=== PATIENT | female | born 1985 | race Caucasian/White ===

== ENCOUNTER 2019-05-01 06:04 | Day surgery (SDC) | payer OTHER ==
[~2019-05-01] VITALS: Ht 162.6 cm; Wt 57.6 kg
[2019-05-01] MEDS ORDERED: PROPOFOL 200 MG/20 ML VIAL IV ONE (08:50)
[2019-05-01] MEDS ORDERED: SEVOFLURANE 250 ML BTL INH ONE (08:50)
[2019-05-01] MEDS ORDERED: LIDOCAINE 1% 500 MG/50 ML VIAL ONE (08:51)
[2019-05-01] MEDS ORDERED: BUPIVACAINE-MPF/EPI 0.25% 30 ML VIAL INJ ONE (08:51)
[2019-05-01] MEDS ORDERED: fentaNYL 0.05 MG/ML VIAL ONE (09:13)
[2019-05-01] MEDS ORDERED: MIDAZOLAM 2 MG/2 ML VIAL ONE (09:13)
[2019-05-01] MEDS ORDERED: LACTATED RINGERS 1,000 ML IV SCH (09:26)
[2019-05-01] MEDS ORDERED: HYDROmorphone 1 MG/ML AMP IVP PRN ×2 (09:30→09:40)
[2019-05-01] MEDS ORDERED: MEPERIDINE 25 MG/ML SYR IVP PRN (09:30)
[2019-05-01] MEDS ORDERED: diphenhydrAMINE 50 MG/ML VIAL IVP PRN (09:30)
[2019-05-01] MEDS ORDERED: ONDANSETRON 4 MG/2 ML VIAL IVP PRN (09:30)
[2019-05-01] MEDS ORDERED: MORPHINE SULFATE 2 MG/ML SYR IVP PRN (09:40)
[2019-05-01] MEDS ORDERED: MORPHINE SULFATE 4 MG/ML SYR IV PRN (09:40)
== END 2019-05-01 10:47 | disposition home or self-care (01) ==
LOC: MDS 06:04 → MMU 06:06 → MDS 10:47
PROVIDERS: ATTEND Surgery
DX: L72.3 Sebaceous cyst (principal); E03.9 Hypothyroidism, unspecified; F41.9 Anxiety disorder, unspecified; M19.90 Unspecified osteoarthritis, unspecified site; Z98.890 Other specified postprocedural states
CPT/HCPCS: 11401; 71045; 88304; J0690; J2001; J2250; J2704; J3010; J3490; J7060; J7120